=== PATIENT | male | born 1955 | race Caucasian/White ===

== ENCOUNTER → 2022-01-22 | Outpatient (CLI) | payer MEDICARE ==
[2022-01-22 09:55] LABS: BASOPHILS # (AUTO) 0.1 10^3/uL (0.0-0.1); BASOPHILS % (AUTO) 1 % (0-10); EOSINOPHILS # (AUTO) 0.2 10^3/uL (0.0-0.3); EOSINOPHILS % (AUTO) 3 % (0-10); HEMATOCRIT 46 % (40-54); HEMOGLOBIN 15.6 g/dL (13.3-17.7); LYMPHOCYTES % (AUTO) 27 % (12-44); MEAN CORPUSCULAR HEMOGLOBIN 29 pg (25-34); MEAN CORPUSCULAR HGB CONC 34 g/dL (32-36); MEAN CORPUSCULAR VOLUME 85 fL (80-99); MEAN PLATELET VOLUME 10.1 fL (9.0-12.2); MONOCYTES # (AUTO) 0.6 10^3/uL (0.0-1.0); MONOCYTES % (AUTO) 8 % (0-12); NEUTROPHILS # (AUTO) 4.5 10^3/uL (1.8-7.8); NEUTROPHILS % (AUTO) 60 % (42-75); PLATELET COUNT 188 10^3/uL (130-400); WHITE BLOOD COUNT 7.5 10^3/uL (4.3-11.0)
--- NOTE | 2022-01-22 12:26 | Diagnostic Imaging Report ---
Indication: Knee pain COMPARISON: None available. TECHNIQUE: 8 radiographs of bilateral knees dated 01/22/2022 FINDINGS: Right: No acute fracture or dislocation. No destructive osseous process. Moderate medial joint space narrowing and minimal lateral joint space narrowing. No significant osteophytosis. No knee joint effusion. Mild narrowing of the medial patellofemoral joint space. Left: No acute fracture or dislocation. No destructive osseous process. Moderate medial joint space narrowing. Minimal lateral joint space narrowing. No significant osteophytosis. No knee joint effusion. Mild narrowing of the medial patellofemoral joint space. IMPRESSION: No acute osseous abnormality with mild to moderate degenerative changes present, greatest within the medial compartments of the bilateral knees. Dictated by: Dictated on workstation # [id number]
== END ==
LOC: ORTHO 08:12
PROVIDERS: ATTEND Orthopaedic Surgery
DX: M17.0 Bilateral primary osteoarthritis of knee (principal)
CPT/HCPCS: 73564; 85025; 86141; G0463; 36415; 99213

== ENCOUNTER → 2022-02-14 | Outpatient (CLI) | payer MEDICARE ==
--- NOTE | 2022-02-14 12:52 | Diagnostic Imaging Report ---
INDICATION: Back pain. FINDINGS: The alignment of lumbar spine is normal. The vertebral body heights are well-maintained. There is no spondylolysis or spondylolisthesis. No fractures are identified. There are some degenerative changes. IMPRESSION: Mild lumbar spondylosis otherwise unremarkable. Dictated by: Dictated on workstation # [id number]
--- NOTE | 2022-02-14 17:31 | Diagnostic Imaging Report ---
Indication: Bilateral hip pain. No priors. Findings: AP pelvis and two-view bilateral hip performed. There is severe bilateral hip arthritis greater left than right with joint space narrowing, articular sclerosis, bulky osteophytes as well as subcortical cyst. No articular collapse, fragmentation or fracture identified. No symphyseal or SI joint diastases. Lower lumbar spondylosis noted. Impression: Severe left greater than right hip chronic osteoarthritis. Dictated by: Dictated on workstation # [id number]
== END ==
LOC: ORTHO 09:51
PROVIDERS: ATTEND Orthopaedic Surgery
DX: M16.0 Bilateral primary osteoarthritis of hip (principal); M47.816 Spondylosis without myelopathy or radiculopathy, lumbar region
CPT/HCPCS: 72100; 73523